=== PATIENT | female | born 1945 | race Caucasian/White ===

== ENCOUNTER 2024-01-08 12:23 | Outpatient (OUT) | payer MEDICARE, SELFPAY ==
--- NOTE | 2024-01-08 | XR_ITS ---
The [address] [address] Patient Name: HIRAM HOFFMAN MRN: [id number] date: 1945 Sex: F Assigned Patient Location: Current Patient Location: Accession/Order Number: [id number] Exam Date: 01/08/2024 12:55 Report Date: 01/08/2024 13:45 At the request of: ORESTES KRISHNA Procedure: XR knee BRENDA 4V EXAMINATION: XR knee BRENDA 4V HISTORY: BILATERAL KNEE PAIN COMPARISON: No relevant comparison available. FINDINGS: RIGHT FINDINGS: BONES: Moderate to severe tricompartmental osteoarthritis with extensive marginal osteophyte formation. Chondrocalcinosis. Mild joint space narrowing SOFT TISSUES: Negative. No visible soft tissue swelling. OTHER: Negative. LEFT FINDINGS: BONES: Severe tricompartmental osteoarthritis with marginal osteophyte formation. Moderate to severe narrowing of the lateral joint space. Chondrocalcinosis. SOFT TISSUES: Negative. No visible soft tissue swelling. OTHER: Negative. 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
== END 2024-01-08 12:24 | disposition home or self-care (01) ==
PROVIDERS: Family Provider Family Medicine; Visit Provider Student in an Organized Health Care Education/Training Program
DX: M25.562 Pain in left knee (principal); M25.561 Pain in right knee; M17.12 Unilateral primary osteoarthritis, left knee
CPT/HCPCS: 73564